=== PATIENT | male | born 1945 | race Caucasian/White ===

== ENCOUNTER 2017-02-08 00:18 | Inpatient (IN) | payer BC ==
[~2017-02-08] VITALS: Ht 180.3 cm; Wt 78.0 kg
[2017-02-08] VITALS (13 sets, daily range): BP systolic 91–133; BP diastolic 59–83; PULSE 65–80; RESP 14–20; TEMP 95.6–97.9; O2SAT 95–100
[2017-02-08] MEDS ORDERED: SODIUM CHLOR 0.9% 1000 ML INJ 1,000 ML IV SCH ×2 (00:54→05:00)
[2017-02-08] MEDS ORDERED: PANTOPRAZOLE INJ 80 MG in SODIUM CHLORIDE 0.9% INJ 35 ML IV ONE (01:00)
[2017-02-08] MEDS ORDERED: SODIUM CHLORIDE 0.9% FLUSH 10 ML FLUSH IVF PRN (01:00)
--- NOTE | 2017-02-08 01:16 | PD ---
HPI Chief Complaint: GI Complaint Time Seen by Provider: 00:33 Travel History International Travel<30 days: No Contact w/Intl Traveler<30days: No Traveled to known affect area: No History of Present Illness HPI The patient is a 71 year old male who presents to the [facility] emergency department with a history of light red blood per rectum that began at approximate 30 p.m. this evening. The patient's recent history is, located by having a screening colonoscopy on February [address] Epps at the [facility]. The patient reports that he's had lightheaded sensation and syncope associated with moving his bowels since the onset. He has had 7 episodes of what he stools. The patient denies having any nausea or vomiting. The patient denies having any black or tarry stools prior to this. He reports having abdominal discomfort in the left lower quadrant of the abdomen. He has a history many years ago the GI bleed related to hemorrhoids. He does not know if he has a history of diverticulitis or diverticulosis. The patient denies having any chest pain, chest pressure, or shortness of breath. The patient denies any recent fevers, cough, congestion, neck pain, urinary symptoms, one-sided weakness, slurred speech, facial droop, difficulty with word finding ability, or vision changes. COUNT INCLUDES THE [facility] Past Medical History Narrative Medical The patient's past medical history is significant for diabetes mellitus, history of hemorrhoids. Past Surgical History Narrative Surgical The patient's past surgical history is significant for a laparoscopic cholecystectomy. Social History Alcohol Use: Yes (occasional) Tobacco Use: No Substance Use: No Allergies-Medications (Allergen,Severity, Reaction): Coded Allergies: No Known Allergies (Unverified , 02/08/17) Narrative Medication Levemir insulin 30 units administered at 7:30 PM. Review of Systems Except as stated in HPI: all other systems reviewed are Neg General / Constitutional: No: Fever Eyes: No: Visual changes HENT: No: Headaches Cardiovascular: Positive: Syncope, No: Chest Pain or Discomfort, Dyspnea on exertion Respiratory: No: Shortness of Breath Gastrointestinal: Positive: Diarrhea, Abdominal Pain, Hematochezia, Changes in Bowel Habits, No: Nausea, Hematemesis, Constipation, Indigestion, Loss of Appetite Genitourinary: No: Dysuria Musculoskeletal: No: Pain Skin: No Rash Neurologic: No: Weakness Psychiatric: No: Depression Endocrine: No: Polydipsia Hematologic/Lymphatic: No: Easy Bruising Physical Exam Narrative General: The patient is a well-developed well-nourished male in no acute distress. Head and Neck exam: Head is normocephalic atraumatic. Eyes: EOMI, pupils are equal round and reactive to light. Nose: Midline septum with pink mucous membranes Mouth: Dentition unremarkable. Moist mucus membranes. Posterior oropharynx is not erythematous. No tonsillar hypertrophy. Uvula midline. Airway patent. Neck: No palpable lymphadenopathy. No nuchal rigidity. No thyromegaly. Cardiovascular: Regular rate and rhythm without murmurs, gallops, or rubs. Lungs: Clear to auscultation bilaterally. No wheezes, rhonchi, or rales. Abdomen: Soft, with tenderness on palpation of the left lower quadrant of the abdomen, no other tenderness on palpation of the other quadrants of the abdomen. No guarding, rebound, or rigidity. No tenderness on palpation of McBurney's point. Normal bowel sounds are audible. Negative Auberry sign. The patient had a bedside commode available for examination which showed a significant amount of blood in the commode with small blood clots noted. Extremities: No clubbing, cyanosis, or edema. 2+ pulses in all 4 extremities. No calf tenderness on palpation. Back: No spinous process tenderness to palpation. No costovertebral angle tenderness to palpation. Neurologic Exam: Grossly nonfocal. Skin Exam: No rash noted. Intact skin that is warm and dry. Data Data Last Documented VS Vital Signs Date Time Temp Pulse Resp B/P Pulse Ox O2 Delivery O2 Flow Rate FiO2 02/08/17 01:30 78 18 103/62 97 Room Air 02/08/17 00:22 96.6 Orders Complete Blood Count With Diff (02/08/17 00:54) Comprehensive Metabolic Panel (02/08/17 00:54) Lipase (02/08/17:54) Prothrombin Time / Inr (Pt) (02/08/17:54) Act Partial Throm Time (Ptt) (02/08/17 00:54) Urinalysis - C+S If Indicated (02/08/17:54) Type And Screen (02/08/17 00:54) Red Blood Cells (Rbc) (02/08/17 00:54) Ecg Monitoring (02/08/17 00:54) Iv Access Insert/Monitor (02/08/17 00:54) Oximetry (02/08/17 00:54) Sodium Chlor 0.9% 1000 Ml Inj (Ns 1000 M (02/08/17 00:54) Sodium Chloride 0.9% Flush (Ns Flush) (02/08/17 01:00) Pantoprazole Inj (Protonix Inj) (02/08/17 01:00) Pantoprazole Inj (Protonix Inj) (02/08/17 01:00) B-Type Natriuretic Peptide (02/08/17 00:54) Chest, Single Ap (02/08/17 00:54) Ct Abd/Pel W Iv Contrast(Rout) (02/08/17 00:54) Iohexol 350 Inj (Omnipaque 350 Inj) (02/08/17 02:44) Ckmb (Isoenzyme) Profile (02/08/17 01:05) Troponin I (02/08/17 01:05) CKMB% (02/08/17 01:05) CKMB (02/08/17 01:05) Admit Order (Ed Use Only) (02/08/17 03:19) Labs Laboratory Tests Test 02/08/17 02/08/17 01:05 01:50 White Blood Count 7.9 TH/MM3 Red Blood Count 4.62 MIL/MM3 Hemoglobin 13.5 GM/DL Hematocrit 40.1 % Mean Corpuscular Volume 86.8 FL Mean Corpuscular Hemoglobin 29.3 PG Mean Corpuscular Hemoglobin 33.7 % Concent Red Cell Distribution Width 13.8 % Platelet Count 139 TH/MM3 Mean Platelet Volume 8.6 FL Neutrophils (%) (Auto) 32.4 % Lymphocytes (%) (Auto) 56.2 % Monocytes (%) (Auto) 9.2 % Eosinophils (%) (Auto) 1.8 % Basophils (%) (Auto) 0.4 % Neutrophils # (Auto) 2.6 TH/MM3 Lymphocytes # (Auto) 4.4 TH/MM3 Monocytes # (Auto) 0.7 TH/MM3 Eosinophils # (Auto) 0.1 TH/MM3 Basophils # (Auto) 0.0 TH/MM3 CBC Comment DIFF FINAL Differential Comment Prothrombin Time 10.7 SEC Prothromb Time International 1.0 RATIO Ratio Activated Partial 22.6 SEC Thromboplast Time Sodium Level 140 MEQ/L Potassium Level 3.5 MEQ/L Chloride Level 103 MEQ/L Carbon Dioxide Level 29.6 MEQ/L Anion Gap 7 MEQ/L Blood Urea Nitrogen 17 MG/DL Creatinine 0.82 MG/DL Estimat Glomerular Filtration 93 ML/MIN Rate Random Glucose 265 MG/DL Calcium Level 8.8 MG/DL Total Bilirubin 0.6 MG/DL Aspartate Amino Transf 16 U/L (AST/SGOT) Alanine Aminotransferase 33 U/L (ALT/SGPT) Alkaline Phosphatase 91 U/L Total Creatine Kinase 120 U/L Creatine Kinase MB 2.6 NG/ML Troponin I 0.02 NG/ML B-Type Natriuretic Peptide 9 PG/ML Total Protein 6.1 GM/DL Albumin 3.2 GM/DL Lipase 158 U/L Blood Type O POSITIVE O POSITIVE Antibody Screen NEGATIVE Crossmatch Leukocyte-Reduced Red Blood Cells Blood Bank Comment MDM Medical Decision Making Medical Screen Exam Complete: Yes Emergency Medical Condition: Yes Medical Record Reviewed: Yes Interpretation(s) Last Impressions Chest X-Ray 02/08/1753 Signed Impressions: Service Date/Time: Wednesday, February 08, 2017 01:15 - CONCLUSION: 1. No acute intrathoracic process. 2. 7 mm nodular density within the right upper lobe. It is suggested that patient undergo an outpatient CT of the thorax to further evaluate. Felipe Thomas Jr., MD Abdomen/Pelvis CT 02/08/1753 Signed Impressions: Service Date/Time: Wednesday, February 08, 2017 02:37 - CONCLUSION: 1. Mild prominence of the intrahepatic and necrotizing biliary tree without obstructing mass or stone. This may simply be a capacitance affect from prior cholecystectomy. 2. The gallbladder is either surgically absent or totally decompressed. 3. No acute abnormality. Felipe Tohmas Jr., MD Differential Diagnosis GI bleed with symptomatic anemia related to peptic ulcer, versus diverticulosis , versus AVM malformation Narrative Course During the course of the patients emergency department visit, the patients history, examination, and differential diagnosis were reviewed with the patient. The patient had IV access obtained and blood work sent for analysis. The patient was typed and screened for blood. The patient was typed and crossmatched for 4 units to be placed on hold. The patient had an EKG done on arrival that showed a sinus rhythm heart rate of 60, no acute ST segment elevation. T waves are inverted in V1. The patient was initially provided normal saline 1 L IV fluid bolus, Protonix 80 mg IV, Protonix 80 mg IV per hour drip The patients laboratory studies were reviewed and remarkable for a white count of 7.9, hemoglobin 13.5, platelets 139 with 56.2 lymphocytes, monocytes 9.2, CMP is remarkable for glucose of 265, cardiac enzymes within normal limits, BNP 9, lipase 158, PT 10.7, PTT 22.6 Radiology studies were reviewed and remarkable for a chest x-ray that shows no acute abnormality, 7 mm nodular density within the right upper lobe. It is suggested that the patient undergo an outpatient CT scan of the thorax to further evaluate. CT scan of the abdomen and pelvis reveals mild prominence of the intrahepatic biliary system without gross dilatation, common bile duct measures 9 mm in diameter. The gallbladder is either totally decompress are surgically absent, no hepatic masses. No acute abnormality. The patients results were discussed with the patient, including the plan of care. I explained that further testing and/ or monitoring is indicated based on the patients history, examination, and/ or laboratory findings. Therefore, I recommended admission for additional evaluation. The patient expressed understanding and was agreeable with this plan. The patient was admitted to the hospital in stable condition and sent to a bed under the care of the [facility]. Physician Communication Physician Communication The patient's case will be discussed with Dr. Krishnamurthy for admission. Diagnosis Primary Impression: GI bleed Qualified Code: K92.2 - Gastrointestinal hemorrhage, unspecified gastrointestinal hemorrhage type Admitting Information Admitting Physician Requests: Admit Kristen Mckeon MD February 08, 2017 01:16
[2017-02-08 01:18] LABS: AUTOMATED NEUTROPHIL # 2.6 TH/MM3 (1.8-7.7); BASOPHIL % 0.4 % (0.0-2.0); EOSINOPHIL # 0.1 TH/MM3 (0-0.4); EOSINOPHIL % 1.8 % (0.0-4.0); HEMATOCRIT 40.1 % (39.0-51.0); HEMO FLAGS DIFF FINAL; LYMPH % 56.2 % (9.0-44.0); LYMPHOCYTE # 4.4 TH/MM3 (1.0-4.8); MEAN CELL VOLUME 86.8 FL (80.0-100.0); MEAN CORPUSCULAR HEMOGLOBIN 29.3 PG (27.0-34.0); MEAN CORPUSCULAR HGB CONC 33.7 % (32.0-36.0); MONO % 9.2 % (0.0-8.0); NEUT % 32.4 % (16.0-70.0); PLATELET COUNT 139 TH/MM3 (150-450); RED BLOOD COUNT 4.62 MIL/MM3 (4.50-5.90); RED CELL DISTRIBUTION WIDTH 13.8 % (11.6-17.2); WHITE BLOOD COUNT 7.9 TH/MM3 (4.0-11.0)
--- NOTE | 2017-02-08 01:27 | RADRPT ---
EXAM DATE/TIME: 02/08/2017 01:15 [facility] COMPARISON: No previous studies available for comparison. INDICATIONS : Cough. MEDICAL HISTORY : None. SURGICAL HISTORY : None. ENCOUNTER: Initial ACUITY: 1 day PAIN SCORE: 0/10 LOCATION: Bilateral chest FINDINGS: A single portable frontal view the chest shows no infiltrate or effusion. A 7 mm nodular-like density is seen involving the right upper lobe. Heart is normal in size. Mild scoliotic curvature. CONCLUSION: 1. No acute intrathoracic process. 2. 7 mm nodular density within the right upper lobe. It is suggested that patient undergo an outpatie nt CT of the thorax to further evaluate. Felipe Thomas Jr., MD on February 08, 2017 at 1:25 Board Certified Radiologist. This report was verified electronically.
[2017-02-08 01:28] LABS: APTT (PATIENT) 22.6 SEC (24.3-30.1); PROTHROMBIN TIME - PATIENT 10.7 SEC (9.8-11.6)
[2017-02-08 01:46] LABS: ALT (GPT) 33 U/L (12-78); ANION GAP 7 MEQ/L (5-15); AST (GOT) 16 U/L (15-37); BICARBONATE 29.6 MEQ/L (21.0-32.0); BLOOD UREA NITROGEN 17 MG/DL (7-18); CHLORIDE 103 MEQ/L (98-107); GLOMERULAR FILTRATION RATE 93 ML/MIN (>89); POTASSIUM 3.5 MEQ/L (3.5-5.1); SODIUM (NA) 140 MEQ/L (136-145)
[2017-02-08 01:48] LABS: ALKALINE PHOSPHATASE 91 U/L (45-117); TOTAL BILIRUBIN ADULT 0.6 MG/DL (0.2-1.0)
[2017-02-08] MEDS: PANTOPRAZOLE INJ 80 MG in SODIUM CHLORIDE 0.9% INJ 100 ML IV SCH ×3 (02:27→22:00)
[2017-02-08] MEDS ORDERED: IOHEXOL 350 MG/ML 10 ML VIAL (for RAD DIAG) IV ONE (02:44)
--- NOTE | 2017-02-08 02:54 | RADRPT ---
EXAM DATE/TIME: 02/08/2017 02:37 [facility] COMPARISON: No previous studies available for comparison. INDICATIONS : Left lower qaudrant pain with blood in stool. IV CONTRAST: 90 cc Omnipaque 350 (iohexol) IV ORAL CONTRAST: No oral contrast ingested. RADIATION DOSE: 6.14 CTDIvol (mGy) MEDICAL HISTORY : Diabetes mellitus type 2. SURGICAL HISTORY : None. ENCOUNTER: Initial ACUITY: 1 day PAIN SCALE: 5/10 LOCATION: Left lower quadrant TECHNIQUE: Volumetric scanning of the abdomen and pelvis was performed. Using automated exposure control and ad justment of the mA and/or kV according to patient size, radiation dose was kept as low as reasonably achievable to obtain optimal diagnostic quality images. FINDINGS: LOWER LUNGS: The visualized lower lungs are clear. LIVER: A tiny cyst is seen within segment 3. There is mild prominence to the intrahepatic biliary system wit hout gross dilatation. The common bile duct measures 9 mm in diameter. The gallbladder is either tota lly decompressed or surgically absent. No hepatic masses are observed. Portal vein is patent. SPLEEN: Normal size without lesion. PANCREAS: Within normal limits. KIDNEYS: Normal in size and shape. There is no mass, stone or hydronephrosis. 1 cm cyst involving the right u pper pole. ADRENAL GLANDS: Within normal limits. VASCULAR: There is no aortic aneurysm. BOWEL/MESENTERY: The stomach, small bowel, and colon demonstrate no acute abnormality. There is no free intraperitone al air or fluid. ABDOMINAL WALL: Within normal limits. RETROPERITONEUM: There is no lymphadenopathy. BLADDER: No wall thickening or mass. REPRODUCTIVE: Within normal limits. INGUINAL: There is no lymphadenopathy or hernia. MUSCULOSKELETAL: Within normal limits for patient age. CONCLUSION: 1. Mild prominence of the intrahepatic and necrotizing biliary tree without obstructing mass or stone . This may simply be a capacitance affect from prior cholecystectomy. 2. The gallbladder is either surgically absent or totally decompressed. 3. No acute abnormality. Felipe Thomas Jr., MD on February 08, 2017 at 2:49 Board Certified Radiologist. This report was verified electronically.
[2017-02-08 03:05] LABS: CREATINE KINASE 120 U/L (39-308)
[2017-02-08 03:24] LABS: CKMB 2.6 NG/ML (0.5-3.6)
[2017-02-08] MEDS ORDERED: NALOXONE HCL 0.4 MG/ML AMP IV PRN (04:15)
[2017-02-08] MEDS ORDERED: GLUCAGON 1 MG/ML VIAL OTHER PRN (04:15)
[2017-02-08] MEDS ORDERED: DEXTROSE 50% IN WATER 50 ML VIAL(D50) IV PUSH PRN (04:15)
[2017-02-08] MEDS ORDERED: SODIUM CHLORIDE 0.9% FLUSH 10 ML FLUSH IV FLUSH PRN (04:15)
--- NOTE | 2017-02-08 04:19 | HHI.HP ---
HPI Service [facility] Hospitalists Primary Care Physician No Primary Care Physician Admission Diagnosis GI bleed with syncope Diagnoses: Chief Complaint: bleeding in stool Travel History International Travel<30 Days: No Contact w/Intl Traveler <30 Da: No Traveled to Known Affected Are: No History of Present Illness Patient does not speak Tu[place] family members at bedside for translation per patients request. The patient is a 71 year old male patient with past medical history which includes diabetes mellitus and hemorrhoids. Patient presents to the [facility] emergency department secondary to bright red blood per rectum and syncopal episode. Patient reports bright red blood per rectum that began at approximate 8:00 pm 02/07/17. Patient reports he has approximately 7 episodes of bloody liquid stool associated with left lower quadrant abdominal pain, feeling lightheaded, dizziness and syncopal episode x 2. First syncopal episode witnessed by family while sitting in the car on the way to the ER. Second syncopal episode while in bathroom in the ER. Patient has had a recent screening colonoscopy with polypectomy on February 03, [address] Epps at the [facility]. The patient denies having any nausea or vomiting. He has a history many years ago the GI bleed related to hemorrhoids. He does not know if he has a history of diverticulitis or diverticulosis. The patient denies having blood in urine, chest pain, chest pressure, or shortness of breath, recent fevers, chills, cough, congestion, neck pain, urinary symptoms, focal weakness, slurred speech, facial droop, difficulty with word finding ability, or vision changes. Review of Systems Except as stated in HPI: all other systems reviewed are Neg Past Family Social History Past Medical History diabetes mellitus, history of hemorrhoids Past Surgical History laparoscopic cholecystectomy colonoscopy with polypectomy on February 03, 2017 Reported Medications Levemir insulin 30 Units subQ BID Metformin 1000 MG once a day Simvastatin unknown dose Q HS Allergies: Coded Allergies: No Known Allergies (Unverified , 02/08/17) Active Ordered Medications Current Medications Medications (Trade) Dose Ordered Sig/Irish Route Start Time Stop Time Status Last Admin (Protonix Inj/NS Inj) 100 ml @ 10 mls/hr Q10H IV 02/08/17 01:00 02/08/17 02:27 (NS Flush) 2 ml UNSCH PRN IV FLUSH 02/08/17 04:15 (NS Flush) 2 ml BID IV FLUSH 02/08/17 09:00 (Narcan Inj) 0.4 mg UNSCH PRN IV 02/08/17 04:15 (D50w (Vial) Inj) 25 ml UNSCH PRN IV PUSH 02/08/17 04:15 (Glucagon Inj) 1 mg UNSCH PRN OTHER 02/08/17 04:15 Family History reports his family does not go to hospitals does report DM and HTN run in his family Social History ETOH use socially not on a daily basis Denies tobacco use or illicit drug use Physical Exam Vital Signs Vital Signs Date Time Temp Pulse Resp B/P Pulse Ox O2 Delivery O2 Flow Rate FiO2 02/08/17 03:21 80 18 102/68 99 Room Air 02/08/17 01:30 78 18 103/62 97 Room Air 02/08/17 01:21 97 Room Air 02/08/17 00:22 96.6 65 16 91/61 100 Room Air Physical Exam GENERAL: This is a well-nourished, well-developed patient, appears fatigued, with pallor SKIN: No rashes, ecchymoses or lesions. Cool and dry. HEAD: Atraumatic. Normocephalic. No temporal or scalp tenderness. EYES: Extraocular motions intact. No scleral icterus. No injection or drainage. CARDIOVASCULAR: Regular rate and rhythm without murmurs, gallops, or rubs. RESPIRATORY: Clear to auscultation. Breath sounds equal bilaterally. No wheezes , rales, or rhonchi. GASTROINTESTINAL: Abdomen soft, tender left lower quadrant, nondistended. MUSCULOSKELETAL: Extremities without clubbing, cyanosis, or edema. No joint tenderness, effusion, or edema noted. No calf tenderness. Negative Homans sign bilaterally. NEUROLOGICAL: Awake and alert. No focal deficits. Motor and sensory grossly within normal limits. 4-5 out of 5 muscle strength in all muscle groups. Laboratory Laboratory Tests Test 02/08/17 02/08/17 01:05 01:50 White Blood Count 7.9 Red Blood Count 4.62 Hemoglobin 13.5 Hematocrit 40.1 Mean Corpuscular Volume 86.8 Mean Corpuscular Hemoglobin 29.3 Mean Corpuscular Hemoglobin 33.7 Concent Red Cell Distribution Width 13.8 Platelet Count 139 Mean Platelet Volume 8.6 Neutrophils (%) (Auto) 32.4 Lymphocytes (%) (Auto) 56.2 Monocytes (%) (Auto) 9.2 Eosinophils (%) (Auto) 1.8 Basophils (%) (Auto) 0.4 Neutrophils # (Auto) 2.6 Lymphocytes # (Auto) 4.4 Monocytes # (Auto) 0.7 Eosinophils # (Auto) 0.1 Basophils # (Auto) 0.0 CBC Comment DIFF FINAL Differential Comment Prothrombin Time 10.7 Prothromb Time International 1.0 Ratio Activated Partial 22.6 Thromboplast Time Sodium Level 140 Potassium Level 3.5 Chloride Level 103 Carbon Dioxide Level 29.6 Anion Gap 7 Blood Urea Nitrogen 17 Creatinine 0.82 Estimat Glomerular Filtration 93 Rate Random Glucose 265 Calcium Level 8.8 Total Bilirubin 0.6 Aspartate Amino Transf 16 (AST/SGOT) Alanine Aminotransferase 33 (ALT/SGPT) Alkaline Phosphatase 91 Total Creatine Kinase 120 Creatine Kinase MB 2.6 Troponin I 0.02 B-Type Natriuretic Peptide 9 Total Protein 6.1 Albumin 3.2 Lipase 158 Blood Type O POSITIVE O POSITIVE Antibody Screen NEGATIVE Crossmatch Leukocyte-Reduced Red Blood Cells Blood Bank Comment Result Diagram: 02/08/1710402/08/17104 Imaging Last Impressions Chest X-Ray 02/08/1753 Signed Impressions: Service Date/Time: Wednesday, February 08, 2017 01:15 - CONCLUSION: 1. No acute intrathoracic process. 2. 7 mm nodular density within the right upper lobe. It is suggested that patient undergo an outpatient CT of the thorax to further evaluate. Felipe Thomas Jr., MD Abdomen/Pelvis CT 02/08/1753 Signed Impressions: Service Date/Time: Wednesday, February 08, 2017 02:37 - CONCLUSION: 1. Mild prominence of the intrahepatic and necrotizing biliary tree without obstructing mass or stone. This may simply be a capacitance affect from prior cholecystectomy. 2. The gallbladder is either surgically absent or totally decompressed. 3. No acute abnormality. Felipe Thomas Jr., MD Assessment and Plan Problem List: (1) GI bleed ICD Code: K92.2 Status: Acute (2) Syncope ICD Code: R55 Status: Acute (3) Abnormal CXR ICD Code: R93.8 Status: Acute (4) DM (diabetes mellitus) ICD Code: E11.9 Status: Chronic Assessment and Plan Patient does not speak Tuvaluan- family members at bedside for translation per patients request. The patient is a 71 year old male patient with past medical history which includes diabetes mellitus and hemorrhoids. Patient presents to the [facility] emergency department secondary to bright red blood per rectum and syncopal episode. Recent screening colonoscopy with polypectomy on February 03, [address] Epps at the [facility]. GI bleed with dizziness and syncope likely secondary to GI bleed NS at 100 ml/H Hgb 13.5 will monitor closely H&H Q4H occult stool ordered patient type and crossmatched 4 units PRBC on hold NPO Protonix drip GI consult CT abdomen/pelvis reviewed and reveals: 1. Mild prominence of the intrahepatic and necrotizing biliary tree without obstructing mass or stone. This may simply be a capacitance affect from prior cholecystectomy. 2. The gallbladder is either surgically absent or totally decompressed. 3. No acute abnormality. Patient continues to have active bleeding with syncopal episodes x2 and pallor- will transfuse 2 units PRBC now DM accu checks ACHS with low dose SSI abnormal CXR CXR reviewed by myself and Dr. Krishnamurthy reveals: 1. No acute intrathoracic process. 2. 7 mm nodular density within the right upper lobe. 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 Krishnamurthy on 02/08/17 at 04: 15. This note was transcribed by scribe [ Kati Dan]. I, Dr. Melchor Krishnamurthy personally performed the history, physical exam, and medical decision making; and confirmed the accuracy of the information in the transcribed note. Authenticated by Dr. Melchor Krishnamurthy on 02/08/17 at 04:15. Physician Certification 2 Midnight Certification Type: Admission for Inpatient Services Order for Inpatient Services The services are ordered in accordance with Medicare regulations or non- Medicare payer requirements, as applicable. In the case of services not specified as inpatient-only, they are appropriately provided as inpatient services in accordance with the 2-midnight benchmark. Estimated LOS (days): 3 days is the estimated time the patient will need to remain in the hospital, assuming treatment plan goals are met and no additional complications. Post-Hospital Plan: Home Problem Qualifiers (1) GI bleed: Qualified Code: K92.2 - Gastrointestinal hemorrhage, unspecified gastrointestinal hemorrhage type (2) DM (diabetes mellitus): Kati Dan February 08, 2017 04:19 Melchor Krishnamurthy MD February 08, 2017 07:26
[2017-02-08 05:19] LABS: HEMATOCRIT 36.4 % (39.0-51.0); REVIEW FLAG FINAL
[2017-02-08] MEDS: SODIUM CHLOR 0.9% 1000 ML INJ 1,000 ML IV SCH ×2 (05:58→14:50)
[2017-02-08] MEDS ORDERED: FUROSEMIDE 20 MG/2 ML VIAL IV PUSH PRN (06:00)
[2017-02-08] MEDS: INSULIN ASPART SUPPLEMENTAL SCALE SQ SCH ×4 (08:23→19:46)
[2017-02-08] MEDS: SODIUM CHLORIDE 0.9% FLUSH 10 ML FLUSH IV FLUSH SCH ×2 (09:06→19:46)
--- NOTE | 2017-02-08 10:59 | PD.CONS ---
HPI History of Present Illness This is a 71 year old male who recently had a colonoscopy with polypectomy with Dr. Goss in [place] on 02/03/17. He was doing fine up until yesterday evening, when he had the sudden onset of diarrhea with BRBPR. The patient states that he had the sudden urge to move his bowels and that when he did, he passed a large amount of bright red blood per rectum. He reports that this was just blood- but then later mentioned he had a few loose stools yesterday. He had a total of 7 episodes of the bright red blood per rectum, with the last episode being around 1am. He denies any associated abdominal pain, but does seem to have some left lower quadrant tenderness on exam. He states that his appetite has been fine, that he has not lost weight, he denies any nausea, vomiting. He does have a history of hemorrhoids, but denies any recent straining or constipation. He denies any recent travel or antibiotic use. He did eat at [employer] yesterday, but states nothing out of the ordinary. (Karina Thibodeaux) [facility] Past Medical History Diabetes mellitus History of hemorrhoids Colon polyps, recent polypectomy Past Surgical History Laparoscopic cholecystectomy Colonoscopy with polypectomy on February 03, 2017 (Karina Thibodeaux) Coded Allergies: No Known Allergies (Unverified , 02/08/17) Medications Allergies Coded Allergies Type Severity Reaction Last Updated Verified No Known Allergies 02/08/17 No Family History Denies any significant family history Social History ETOH use socially not on a daily basis Denies tobacco use or illicit drug use (Karina Thibodeaux) Review of Systems Constitutional: DENIES: Fatigue, Weight loss, Change in appetite Respiratory: DENIES: Cough Cardiovascular: DENIES: Chest pain Gastrointestinal: COMPLAINS OF: Abdominal pain, Bloody stools (Bright red blood per rectum), Diarrhea, DENIES: Black stools, Constipation, Nausea, Vomiting, Anorexia, Swelling of Abdomen, Heartburn Integumentary: DENIES: Abnormal pigmentation Hematologic/lymphatic: DENIES: Bruising Neurologic: DENIES: Headache Psychiatric: DENIES: Confusion (Karina Thibodeaux) GI Exam Vitals I&O Vital Signs Date Time Temp Pulse Resp B/P Pulse Ox O2 Delivery O2 Flow Rate FiO2 02/08/17 08:44 96.8 67 18 118/77 100 02/08/17 06:30 95.6 68 18 113/59 97 02/08/17 05:45 97.9 72 18 114/73 98 Room Air 02/08/17 03:21 80 18 102/68 99 Room Air 02/08/17 01:30 78 18 103/62 97 Room Air 02/08/17 01:21 97 Room Air 02/08/17 00:22 96.6 65 16 91/61 100 Room Air Imaging Last Impressions Chest X-Ray 02/08/1753 Signed Impressions: Service Date/Time: Wednesday, February 08, 2017 01:15 - CONCLUSION: 1. No acute intrathoracic process. 2. 7 mm nodular density within the right upper lobe. It is suggested that patient undergo an outpatient CT of the thorax to further evaluate. Felipe Thomas Jr., MD Abdomen/Pelvis CT 02/08/1753 Signed Impressions: Service Date/Time: Wednesday, February 08, 2017 02:37 - CONCLUSION: 1. Mild prominence of the intrahepatic and necrotizing biliary tree without obstructing mass or stone. This may simply be a capacitance affect from prior cholecystectomy. 2. The gallbladder is either surgically absent or totally decompressed. 3. No acute abnormality. Felipe Thomas Jr., MD Laboratory Test 02/08/17 02/08/17 02/08/17 01:05 01:50 05:08 White Blood Count 7.9 TH/MM3 Red Blood Count 4.62 MIL/MM3 Hemoglobin 13.5 GM/DL 12.3 GM/DL Hematocrit 40.1 % 36.4 % Mean Corpuscular Volume 86.8 FL Mean Corpuscular Hemoglobin 29.3 PG Mean Corpuscular Hemoglobin 33.7 % Concent Red Cell Distribution Width 13.8 % Platelet Count 139 TH/MM3 Mean Platelet Volume 8.6 FL Neutrophils (%) (Auto) 32.4 % Lymphocytes (%) (Auto) 56.2 % Monocytes (%) (Auto) 9.2 % Eosinophils (%) (Auto) 1.8 % Basophils (%) (Auto) 0.4 % Neutrophils # (Auto) 2.6 TH/MM3 Lymphocytes # (Auto) 4.4 TH/MM3 Monocytes # (Auto) 0.7 TH/MM3 Eosinophils # (Auto) 0.1 TH/MM3 Basophils # (Auto) 0.0 TH/MM3 CBC Comment DIFF FINAL Differential Comment Prothrombin Time 10.7 SEC Prothromb Time International 1.0 RATIO Ratio Activated Partial 22.6 SEC Thromboplast Time Sodium Level 140 MEQ/L Potassium Level 3.5 MEQ/L Chloride Level 103 MEQ/L Carbon Dioxide Level 29.6 MEQ/L Anion Gap 7 MEQ/L Blood Urea Nitrogen 17 MG/DL Creatinine 0.82 MG/DL Estimat Glomerular Filtration 93 ML/MIN Rate Random Glucose 265 MG/DL Calcium Level 8.8 MG/DL Total Bilirubin 0.6 MG/DL Aspartate Amino Transf 16 U/L (AST/SGOT) Alanine Aminotransferase 33 U/L (ALT/SGPT) Alkaline Phosphatase 91 U/L Total Creatine Kinase 120 U/L Creatine Kinase MB 2.6 NG/ML Troponin I 0.02 NG/ML B-Type Natriuretic Peptide 9 PG/ML Total Protein 6.1 GM/DL Albumin 3.2 GM/DL Lipase 158 U/L Blood Type O POSITIVE O POSITIVE Antibody Screen NEGATIVE Crossmatch Leukocyte-Reduced Red Blood Cells Blood Bank Comment Physical Examination HEENT: Normocephalic; atraumatic CHEST: CTA CARDIAC: RRR ABDOMEN: Soft, nondistended, mild LLQ tenderness; no hepatosplenomegaly; bowel sounds are present in all four quadrants. EXTREMITIES: No clubbing, cyanosis, or edema. SKIN: Normal; no rash; no jaundice. SAFETY SUPERVISOR: No focal deficits; alert and oriented times three. (Karina Thibodeaux) Assessment and Plan Plan ASSESSMENT: - Bright red blood per rectum. Pt recently had a colonoscopy with polypectomy on (02/03/17) with Dr. Goss in [place]. The patient does not know if this was a large polyp or the location of the polyp. He was doing well up until last night, 8pm, when he started having a large amount of bright red blood per rectum. He had 7 episodes with the last episode being early this am at 1am. He denies abdominal pain, but did have some LLQ tenderness on exam. Abdomen/Pelvis CT (02/08/17)---> 1. Mild prominence of the intrahepatic and necrotizing biliary tree without obstructing mass or stone. This may simply be a capacitance affect from prior cholecystectomy. 2. The gallbladder is either surgically absent or totally decompressed. 3. No acute abnormality. No leukocytosis. HH stable 12.3/36.4. LFT normal- S/P Cholecystectomy. Will keep NPO for now and try to obtain colonoscopy report JOHNSON- D/W nurse to have patient sign release, fax, and call Dr. Goss's office and to notify me once they have obtained this report. - LLQ tenderness. CT as above. Mild. - DM. Per primary PLAN: - Keep NPO for now - Obtain colonoscopy report from Dr. Goss ([place]), 02/03/17 JOHNSON- d/w nurse to have patient sign release, fax, and call Dr. Goss's office and to call me once this is available - Monitor HH - Possible colonoscopy/flexible sigmoidoscopy today (if patient had large polyp removed), based on colonoscopy report - Further recommendations to follow based on results of above - Pt seen and examined by Dr. Andrade and myself and this note is written on her behalf ADDENDUM: [id number]. Colonoscopy report received (02/03/17)---> 1.2 cm ssingle semi- pedunculated polyp was found in the hepatic flexure, removed by snare cautery polypectomy, internal and external hemorrhoids found, few diverticula were found in the ascending colon, normal terminal ileum, ileocecal valve, appendiceal orifice, cecum, transverse descending colon, sigmoid colon, and rectum. Will plan for colonoscopy in am. Clear liquids, NPO after MN, obtain consent for colonoscopy- spoke to family/pt. (Karina Thibodeaux) Physician Comments seen, examined agree with above bleeding form polypectomy site most likely (Lulu Andrade MD) Karina Thibodeaux February 08, 2017 10:59 Lulu Andrade MD February 08, 2017 18:09
--- NOTE | 2017-02-08 12:19 | HHI.PR ---
Addendum to Inpatient Note Additional Information Patient seen and examined Receiving 2nd unit of PRBC GI is following Kristofer Hernandez MD February 08, 2017 12:19
[2017-02-08 16:06] LABS: HEMATOCRIT 40.4 % (39.0-51.0); REVIEW FLAG FINAL
[2017-02-08] MEDS ORDERED: PEG (High)/E-LYTE SOLN 4000 ML BTL PO ONE (17:00)
--- NOTE | 2017-02-08 19:44 | EKG ---
Date Performed: 02/08/2017 Time Performed: 01:03:27 PTAGE: 71 years EKG: Sinus rhythm NONSPECIFIC ST & T-WAVE ABNORMALITY BORDERLINE ECG NO PREVIOUS TRACING DOCTOR: Darryl Wilder Interpretating Date/Time 02/08/2017 19:43:33
[2017-02-08 21:28] LABS: HEMATOCRIT 38.2 % (39.0-51.0); REVIEW FLAG FINAL
[2017-02-09] VITALS: BP 150/80; PULSE 75; RESP 18; TEMP 96.7; O2SAT 95
[2017-02-09 04:00] VITALS: BP 140/70; PULSE 80; RESP 20; TEMP 97.8; O2SAT 95
[2017-02-09] MEDS: PANTOPRAZOLE INJ 80 MG in SODIUM CHLORIDE 0.9% INJ 100 ML IV SCH (05:37)
[2017-02-09] MEDS: INSULIN ASPART SUPPLEMENTAL SCALE SQ SCH ×2 (06:06→11:10)
[2017-02-09 07:40] VITALS: BP 118/75; PULSE 53; RESP 18; TEMP 96.5; O2SAT 96
[2017-02-09 07:49] LABS: AUTOMATED NEUTROPHIL # 3.3 TH/MM3 (1.8-7.7); BASOPHIL % 0.4 % (0.0-2.0); EOSINOPHIL # 0.1 TH/MM3 (0-0.4); EOSINOPHIL % 1.4 % (0.0-4.0); HEMATOCRIT 37.9 % (39.0-51.0); LYMPHOCYTE # 1.7 TH/MM3 (1.0-4.8); MEAN CORPUSCULAR HEMOGLOBIN 29.5 PG (27.0-34.0); MEAN CORPUSCULAR HGB CONC 34.4 % (32.0-36.0); MONO % 7.9 % (0.0-8.0); NEUT % 59.3 % (16.0-70.0); PLATELET COUNT 115 TH/MM3 (150-450); RED CELL DISTRIBUTION WIDTH 13.7 % (11.6-17.2); WHITE BLOOD COUNT 5.6 TH/MM3 (4.0-11.0)
[2017-02-09 07:59] LABS: BICARBONATE 28.4 MEQ/L (21.0-32.0); POTASSIUM 3.5 MEQ/L (3.5-5.1)
[2017-02-09 08:25] LABS: HEMO FLAGS AUTO DIFF
[2017-02-09 08:38] LABS: PLATELET ESTIMATE SMEAR LOW (NORMAL); PLATELET MORPHOLOGY NORMAL (NORMAL); SCAN/DIFF AUTO DIFF CONFIRMED
[2017-02-09] MEDS: SODIUM CHLORIDE 0.9% FLUSH 10 ML FLUSH IV FLUSH SCH (08:39)
[2017-02-09 08:56] VITALS: BP 148/83; PULSE 72; RESP 18; TEMP 96.5; O2SAT 98
[2017-02-09] MEDS ORDERED: SIMETHICONE SUSP DROPS 40 MG/0.6 ML 30 ML BTL ONE (09:40)
[2017-02-09] MEDS ORDERED: PROPOFOL 200 MG/20 ML AMP IV ONE (09:50)
--- NOTE | 2017-02-09 10:11 | GIPROC ---
[facility] [address] [facility]. [facility], [address] COLONOSCOPY PROCEDURE REPORT EXAM DATE: 02/09/2017 PATIENT NAME: Melo Jaramillo MR #: [id number] BIRTHDATE: 1945 ENDOSCOPIST: Lulu Andrade MD ORDER #: [id number] ASSISTED LIVING HOUSEKEEPER: Pepe Salas and Carol Musa STATUS: inpatient INDICATIONS: The patient is a 71 yr old male here for a colonoscopy due to rectal bleeding , sp colonoscopy PROCEDURE PERFORMED: Colonoscopy with biopsy MEDICATIONS: None and Per Anesthesia. PREP QUALITY: good PREP TYPE:Magnesium Citrate ESTIMATED BLOOD LOSS: None CONSENT: The patient understands the risks and benefits of the procedure and understands that these risks include, but are not limited to: sedation, allergic reaction, infection, perforation and/or bleeding. Alternative means of evaluation and treatment include, among others: physical exam, x-rays, and/or surgical intervention. The patient elects to proceed with this endoscopic procedure. medical equipment was checked for proper function. Hand hygiene and appropriate measures for infection prevention was taken. After the risks, benefits and alternatives of the procedure were thoroughly explained, Informed consent was verified, confirmed and timeout was successfully executed by the treatment team. A digital exam revealed external hemorrhoids The Pentax [id number] endoscope was introduced through the anus and advanced to the cecum, which was identified by both the appendix and ileocecal valve. The instrument was then slowly withdrawn as the colon was fully examined. COLON FINDINGS: Diminutive polyp ascending colon-biopsy diverticulosis sigmoid, descending internal hemorrhoids. Retroflexed views revealed internal hemorrhoids and Retroflexed views revealed medium internal hemorrhoids The scope was then completely withdrawn from the patient and the procedure terminated. PROCEDURE WITHDRAWAL TIME:6minutes ADVERSE EVENTS: There were no complications. IMPRESSIONS: 1. Diminutive polyp ascending colon-biopsy diverticulosis sigmoid, descending internal hemorrhoids 2. Retroflexed views revealed internal hemorrhoids 3. Retroflexed views revealed medium internal hemorrhoids 4. Revealed external hemorrhoids RECOMMENDATIONS: 1. Await biopsy results. Biopsy results will not be ready for 7-10 days. If you don't hear from us in two weeks, call our office for results. 2. Benefiber 2 tsp daily 3. Yearly rectal exams 4. Proctozone cream RECALL: Colonoscopy, pending biopsy results Lulu Andrade MD eSigned: Lulu Andrade MD 02/09/2017 10:10 AM cc:
[2017-02-09] MEDS ORDERED: PRAMOXINE 1% RECTAL FOAM 15 GM CAN RECTAL ONE (10:30)
[2017-02-09 11:09] VITALS: PULSE 66
--- NOTE | 2017-02-09 11:49 | HHI.PR ---
Subjective Remarks Follow-up GI bleed 02/09/17-patient seen and examined, status post colonoscopy. Stable and does not report any more GI bleed since admission. Denies any chest pain or shortness of breath. Objective Vitals Vital Signs Date Time Temp Pulse Resp B/P Pulse Ox O2 Delivery O2 Flow Rate FiO2 02/09/17 11:09 66 02/09/17 10:04 61 16 138/82 100 02/09/17 09:58 64 16 123/80 100 02/09/17 09:53 97.5 57 16 122/72 100 02/09/17 08:56 96.5 72 18 148/83 98 02/09/17 07:40 96.5 53 18 118/75 96 02/09/17 04:00 97.8 80 20 140/70 95 02/09/17 00:00 96.7 75 18 150/80 95 02/08/17 20:00 96.4 69 14 127/77 95 02/08/17 20:00 72 02/08/17 16:46 97.0 66 18 133/83 98 02/08/17 13:02 97.0 69 18 123/78 95 I/O 02/08/17 02/08/17 02/08/17 02/09/17 02/09/17 02/09/17 07:00 15:00 23:00 07:00 15:00 23:00 Intake Total 1000 ml 1400 ml 200 ml Output Total 5 ml Balance 1000 ml 1395 ml 200 ml Intake IV Total 1400 ml Packed Cells 1000 ml Other 200 ml Output Urine Total 5 ml # Voids 2 Result Diagram: 02/09/17 0647 02/09/17 0649 Imaging Last Impressions Chest X-Ray 02/08/1753 Signed Impressions: Service Date/Time: Wednesday, February 08, 2017 01:15 - CONCLUSION: 1. No acute intrathoracic process. 2. 7 mm nodular density within the right upper lobe. It is suggested that patient undergo an outpatient CT of the thorax to further evaluate. Felipe Thomas Jr., MD Abdomen/Pelvis CT 02/08/1753 Signed Impressions: Service Date/Time: Wednesday, February 08, 2017 02:37 - CONCLUSION: 1. Mild prominence of the intrahepatic and necrotizing biliary tree without obstructing mass or stone. This may simply be a capacitance affect from prior cholecystectomy. 2. The gallbladder is either surgically absent or totally decompressed. 3. No acute abnormality. Felipe Thomas Jr., MD Objective Remarks GENERAL: NAD SKIN: Warm and dry. HEAD: Normocephalic. EYES: No scleral icterus. No injection or drainage. NECK: Supple, trachea midline. No JVD or lymphadenopathy. CARDIOVASCULAR: Regular rate and rhythm without murmurs, gallops, or rubs. RESPIRATORY: Breath sounds equal bilaterally. No accessory muscle use. GASTROINTESTINAL: Abdomen soft, non-tender, nondistended. MUSCULOSKELETAL: No cyanosis, or edema. BACK: Nontender without obvious deformity. No CVA tenderness. A/P Problem List: (1) GI bleed ICD Code: K92.2 Status: Acute (2) Syncope ICD Code: R55 Status: Resolved (3) Abnormal CXR ICD Code: R93.8 Status: Acute (4) DM (diabetes mellitus) ICD Code: E11.9 Status: Chronic Assessment and Plan 71-year-old man with GI bleed s/p Colonoscopy with the finding of external and internal hemorrhoid- treatment with Benefiber and Proctozone cream s/p 2 units PRBC transfused 02/08 Appreciate input from GI CT abdomen/pelvis reviewed and reveals: 1. Mild prominence of the intrahepatic and necrotizing biliary tree without obstructing mass or stone. This may simply be a capacitance affect from prior cholecystectomy. 2. The gallbladder is either surgically absent or totally decompressed. 3. No acute abnormality. DM accu checks ACHS with low dose SSI abnormal CXR CXR with 1. No acute intrathoracic process. 2. 7 mm nodular density within the right upper lobe. 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
[2017-02-09] MEDS ORDERED: BENEPOW8 PO (11:51)
[2017-02-09] MEDS ORDERED: PROC1CRE2 RECTAL (11:51)
--- NOTE | 2017-02-09 11:52 | HHI.DS ---
Discharge Summary Admission Date February 08, 2017 at 03:20 Discharge Date: February 09, 2017 Admitting Diagnosis GI bleed with syncope (1) GI bleed ICD Code: K92.2 (2) Syncope ICD Code: R55 (3) Abnormal CXR ICD Code: R93.8 (4) DM (diabetes mellitus) ICD Code: E11.9 Procedures Colonoscopy 02/09/17 Brief History - From Admission Patient does not speak Maced[place] family members at bedside for translation per patients request. The patient is a 71 year old male patient with past medical history which includes diabetes mellitus and hemorrhoids. Patient presents to the [facility] emergency department secondary to bright red blood per rectum and syncopal episode. Patient reports bright red blood per rectum that began at approximate 8:00 pm 02/07/17. Patient reports he has approximately 7 episodes of bloody liquid stool associated with left lower quadrant abdominal pain, feeling lightheaded, dizziness and syncopal episode x 2. First syncopal episode witnessed by family while sitting in the car on the way to the ER. Second syncopal episode while in bathroom in the ER. Patient has had a recent screening colonoscopy with polypectomy on February 03, [address] Epps at the [facility]. The patient denies having any nausea or vomiting. He has a history many years ago the GI bleed related to hemorrhoids. He does not know if he has a history of diverticulitis or diverticulosis. The patient denies having blood in urine, chest pain, chest pressure, or shortness of breath, recent fevers, chills, cough, congestion, neck pain, urinary symptoms, focal weakness, slurred speech, facial droop, difficulty with word finding ability, or vision changes. CBC/BMP: 02/09/17 0647 02/09/17 0649 Significant Findings Laboratory Tests Test 02/08/17 02/08/17 02/08/17 02/09/17 01:05 05:08 21:10 06:47 Platelet Count 139 TH/MM3 115 TH/MM3 (150-450) (150-450) Lymphocytes (%) (Auto) 56.2 % (9.0-44.0) Monocytes (%) (Auto) 9.2 % (0.0-8.0) Activated Partial 22.6 SEC Thromboplast Time (24.3-30.1) Random Glucose 265 MG/DL (74-106) Total Protein 6.1 GM/DL (6.4-8.2) Albumin 3.2 GM/DL (3.4-5.0) Hemoglobin 12.3 GM/DL (13.0-17.0) Hematocrit 36.4 % 38.2 % 37.9 % (39.0-51.0) (39.0-51.0) (39.0-51.0) Red Blood Count 4.40 MIL/MM3 (4.50-5.90) Platelet Estimate LOW (NORMAL) Test 02/09/17 06:49 Random Glucose 167 MG/DL (74-106) Calcium Level 7.5 MG/DL (8.5-10.1) Imaging Last Impressions Chest X-Ray 02/08/1753 Signed Impressions: Service Date/Time: Wednesday, February 08, 2017 01:15 - CONCLUSION: 1. No acute intrathoracic process. 2. 7 mm nodular density within the right upper lobe. It is suggested that patient undergo an outpatient CT of the thorax to further evaluate. Felipe Thomas Jr., MD Abdomen/Pelvis CT 02/08/1753 Signed Impressions: Service Date/Time: Wednesday, February 08, 2017 02:37 - CONCLUSION: 1. Mild prominence of the intrahepatic and necrotizing biliary tree without obstructing mass or stone. This may simply be a capacitance affect from prior cholecystectomy. 2. The gallbladder is either surgically absent or totally decompressed. 3. No acute abnormality. Felipe Thomas Jr., MD PE at Discharge GENERAL: NAD SKIN: Warm and dry. HEAD: Normocephalic. EYES: No scleral icterus. No injection or drainage. NECK: Supple, trachea midline. No JVD or lymphadenopathy. CARDIOVASCULAR: Regular rate and rhythm without murmurs, gallops, or rubs. RESPIRATORY: Breath sounds equal bilaterally. No accessory muscle use. GASTROINTESTINAL: Abdomen soft, non-tender, nondistended. MUSCULOSKELETAL: No cyanosis, or edema. BACK: Nontender without obvious deformity. No CVA tenderness. Hospital Course GI bleed s/p Colonoscopy with the finding of external and internal hemorrhoid- treatment with Benefiber and Proctozone cream s/p 2 units PRBC transfused 02/08 Appreciate input from GI CT abdomen/pelvis reviewed and reveals: 1. Mild prominence of the intrahepatic and necrotizing biliary tree without obstructing mass or stone. This may simply be a capacitance affect from prior cholecystectomy. 2. The gallbladder is either surgically absent or totally decompressed. 3. No acute abnormality. DM accu checks ACHS with low dose SSI abnormal CXR CXR with 1. No acute intrathoracic process. 2. 7 mm nodular density within the right upper lobe. 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 8 month of treatment Pt Condition on Discharge: Stable Discharge Disposition: Discharge Home Discharge Time: <= 30 minutes Discharge Instructions DIET: Follow Instructions for: Diabetic Diet Activities you can perform: Regular-No Restrictions Follow up Referrals: Gastroenterology PCP Follow-up - 1 Week New Medications: Hydrocortisone Rectal (Proctocort Rectal) 1% Cream 1 APPLIC RECTAL Q6H PRN PAIN/INFLAMMATION #30 Ref 0 GM Wheat Dextrin Powder (Benefiber Powder) 1 Scoop Container 1 SCOOP PO DAILY Mix in water or juice Constipation #1 Ref 0 CONTAINER Kristofer Hernandez MD February 09, 2017 11:52
[2017-02-09 11:56] VITALS: BP 138/81; PULSE 69; RESP 18; TEMP 97; O2SAT 99
--- NOTE | 2017-02-10 12:48 | HHI.PR ---
Addendum to Inpatient Note Addendum Reason: Additional Documentation Additional Information Anemia d/t Chronic blood loss GI bleed d/t Chronic blood loss Kristofer Hernandez MD February 10, 2017 12:48
== END 2017-02-09 13:53 | disposition home or self-care (01) | DRG 379 ==
LOC: NEPE 00:18 → NEDA 03:20 → N05A 06:12
PROVIDERS: ADMIT Hospitalist; ATTEND Hospitalist
PROC: 30233N1 Transfusion of Nonautologous Red Blood Cells into Peripheral Vein, Percutaneous Approach (ICD-10-PCS; 2017-02-08)
PROC: 0DBK8ZX Excision of Ascending Colon, Via Natural or Artificial Opening Endoscopic, Diagnostic (ICD-10-PCS; principal; 2017-02-09 08:55)
DX: K92.2 Gastrointestinal hemorrhage, unspecified (principal); R55 Syncope and collapse; E11.9 Type 2 diabetes mellitus without complications; K64.4 Residual hemorrhoidal skin tags; K64.8 Other hemorrhoids; D50.0 Iron deficiency anemia secondary to blood loss (chronic); R91.1 Solitary pulmonary nodule; K57.30 Diverticulosis of large intestine without perforation or abscess without bleeding; Z79.4 Long term (current) use of insulin; Z86.010 Personal history of colon polyps
CPT/HCPCS: 36430; 71010; 74177; 80048; 80053; 82550; 82552; 82948; 83690; 83880; 84484; 85014; 85018; 85025; 85610; 85730; 86850; 86900; 86901; 86920; 88305; 93005; 96374; C9113; J1815; J7030; P9016; Q9967